=== PATIENT | male | born 1990 | race Hispanic/Latino ===

== ENCOUNTER 2022-01-03 10:33 | Emergency (ER) | payer SELFPAY ==
--- OUTSIDE RECORDS SUMMARY | 2022-01-03 10:37 | XMS REPORT | Continuity of Care Document ---
:1990 Author Organization [facility] t Address [address] [place] [address] Care Team Providers Name Role Phone PCP, PATIENT DOES NOT HAVE A Primary Care Physician Unavaila CARLOS Parker Attending Clinician Unavailable Carlos Roberts DO Attending Clinician Problems Condition Condition Condition Status Onset Resolution Last Treating Co mments Source Name Details Category Date Date Treatment Clinician Date Obesity Obesity Disease Active Univers (BMI (BMI 5-30 ity of 30-39.9) 30-39.9) 00:00: [place] 00 Medical Branch Allergies, Adverse Reactions, Alerts Allergy Allergy Status Severity Reaction(s) Onset Inactive Treating Comm ents Source Name Type Date Date Clinician NO KNOWN Drug Active Univers ALLERGIE Class ity of S [place] Medical Branch Social History Social Habit Start Date Stop Date Quantity Comments Source Exposure to 2021-12-19 2021-12-29 Not sure [facility] SARS-CoV-2 (event) 00:00:00 08:52:00 Medica l Branch Sex Assigned At [birth year] [facility] y of [place] 00:00:00 00:00:00 Medical Branch Smoking Status Start Date Stop Date Source Tobacco smoking consumption Univ [facility] Medical unknown Branch Medications Ordered Filled Start Stop Current Ordering Indication Dosage Frequency Signature Comments Components Source Medication Medication Date Date Medication? Clinician (SIG) Name Name naproxen Yes [id number] 550mg Take 1 U nivers sodium 550 8-24 tablet by ity of mg tablet 00:00: mouth in [place] the Medical morning Branch and 1 tablet in the evening. Take with meals. methylPREDN Yes [id number] Take by [facility] ISolone 4 12-29 mouth ity of mg tablets 00:00: [place]INSTRU [place] 00 CTIONS. Medical follow Branch package directions methocarbam 2021- Yes [id number] 500mg Take 1 Univers oL 500 mg 12-29 08-30 tablet by ity of tablet 00:00: 04:59 mouth in [place] 00 :00 the [facility] Branch and 1 tablet at noon and 1 tablet in the evening. Do all this for 5 days. Vital Signs Vital Name Observation Time Observation Value Comments Source Systolic blood 2021-12-29 13:52:00 149 mm[Hg] [facility] Diastolic blood 2021-12-29 13:52:00 82 mm[Hg] [facility] 2021-12-29 13:52:00 85 /min [facility] Body temperature 2021-12-29 13:52:00 37.17 Nava [facility] Respiratory rate 2021-12-29 13:52:00 14 /min [facility] Body height 2021-12-29 13:52:00 165.1 cm [facility] Body weight 2021-12-29 13:52:00 83.915 kg [facility] BMI 2021-12-29 13:52:00 30.79 kg/m2 [facility] Oxygen saturation in 2021-12-29 13:52:00 98 /min [facility] Arterial blood by [facility] Pulse oximetry [place] Procedures Procedure Date / Time Performed Performing Clinician [facility] e CONSENT/REFUSAL FOR 2021-12-29 13:44:41 Doctor Unassigned, No Un [facility] DIAGNOSIS AND Name Medical Branch TREATMENT Encounters Start End Encounter Admission Attending Care Care Encounter Source Date/Time Date/Time Type Type Clinicians Facility Department ID 2021-12-29 2021-12-29 Emergency X WILLY ROBERTS ERT [id number] Univers 08:53:00 10:32:00 CARLOS tian [facility] 2021-12-29 2021-12-29 Emergency WILLY Roberts [id number] [facility] 08:53:00 10:32:00 Carlos MARGARETTE [id number] i ty [place] [id number] [facility] [id number] [place] 084 Branch Results This patient has no known results.
--- NOTE | 2022-01-03 11:22 | RAD REPORT ---
EXAM DESCRIPTION: US - Extremity Venous Uni Ltd - 01/03/2022 11:13 am CLINICAL HISTORY: Pain COMPARISON: None. TECHNIQUE: Real-time sonographic evaluation of the left lower extremity deep venous system was perfo rmed. FINDINGS: Normal compressibility, flow augmentation, phasic flow and spontaneous flow is identified in the left lower extremity deep venous system. No intraluminal filling defects seen. IMPRESSION: No DVT in the left lower extremity.
--- NOTE | 2022-01-03 11:37 | EDPHYS ---
Physician Documentation [facility] Name: Maco Boykin Age: 31 yrs Sex: Male : 1990 Arrival Date: 01/03/2022 Time: 10:35 Bed 12 Private MD: ED Physician Walker Franklin HPI: 01/03 10:55 This 31 yrs old Male presents to ER via Wheelchair with complaints of Leg Pain.cp 10:55 The patient presents with pain, that is acute. cp 10:55 The complaints affect the left leg. Context: resulted from an unknown cause, the cp patient can fully bear weight, the patient is able to ambulate, without difficulty, Problem is a result from a previous injury: No. Onset: The symptoms/episode began/occurred 1 month(s) ago. Associated signs and symptoms: The patient has no apparent associated signs or symptoms. 10:55 The patient has been recently seen by a physician: [place] ED with similar presenting cp complaints. Historical: - Allergies: 10:44 No Known Allergies; aa5 - PMHx: 10:44 None; aa5 - PSHx: 10:44 None; aa5 - Immunization history:: Adult Immunizations unknown. - Social history:: Smoking status: Patient denies any tobacco usage or history of. ROS: 11:00 MS/extremity: Positive for pain, of the left leg, Negative for injury or acute cp deformity, decreased range of motion, paresthesias. 11:00 Constitutional: Negative for body aches, chills, fever, poor PO intake. cp 11:00 Neck: Negative for pain with movement, pain at rest. 11:00 Cardiovascular: Negative for chest pain, palpitations. 11:00 Respiratory: Negative for cough, shortness of breath, wheezing. 11:00 Abdomen/GI: Negative for abdominal pain, nausea, vomiting, and diarrhea. 11:00 Back: Negative for pain at rest, pain with movement, radiated pain. 11:00 Neuro: Negative for altered mental status, headache, numbness, weakness. 11:00 All other systems are negative. Exam: 11:05 Constitutional: The patient appears in no acute distress, alert, awake, comfortable, cp well developed, well nourished. 11:05 Head/Face: Normocephalic, atraumatic. cp 11:05 Neck: ROM/movement: is normal, is supple, without pain, no range of motions limitations. 11:05 Chest/axilla: Inspection: normal. 11:05 Cardiovascular: Rate: normal, Pulses: Pulses are 2+ in left dorsalis pedis artery. Edema: is not appreciated. 11:05 Respiratory: the patient does not display signs of respiratory distress, Respirations: normal, no use of accessory muscles, no retractions, labored breathing, is not present. 11:05 Abdomen/GI: Exam negative for discomfort, distension, guarding, Inspection: abdomen appears normal. 11:05 Back: pain, is absent, ROM is normal. 11:05 Musculoskeletal/extremity: Extremities: grossly normal except: noted in the left leg: pain from anterior mid upper leg to lower leg, no pain of left hip and left knee and left ankle with full AROM. Overlying skin warm and dry. Vital Signs: 10:42 BP 134 / 87; Pulse 88; Resp 16 S; Temp 98.3(TE); Pulse Ox 97% on R/A; Weight 83.91 kg aa5 (R); Height 5 ft. 5 in. (165.10 cm) (R); 10:42 Body Mass Index 30.79 (83.91 kg, 165.10 cm) aa5 MDM: 10:48 Patient medically screened. cp 11:00 Differential diagnosis: DVT, cellulitis. cp 11:36 Data reviewed: vital signs, nurses notes, radiologic studies, ultrasound, and as a cp result, I will discharge patient. 01/03 10:47 Order name: US Extremity Venous Unilateral Ltd; Complete Time: 11:28 cp 01/03 11:28 Interpretation: Report reviewed. cp Administered Medications: No medications were administered Disposition: 14:07 Co-signature as Attending Physician, Walker Franklin MD. rn Disposition Summary: 01/03/22 11:37 Discharge Ordered Location: Home cp Problem: new cp Symptoms: have improved cp Condition: Stable cp Diagnosis - Pain in left leg cp Followup: cp - With: Private Physician - When: 2 - 3 days - Reason: Worsening of condition Discharge Instructions: - Discharge Summary Sheet cp - Musculoskeletal Pain cp Forms: - Medication Reconciliation Form cp - Work release form iw - Thank You Letter cp - Antibiotic Education cp - Prescription Opioid Use cp Prescriptions: - Diclofenac Sodium 75 mg Oral Tablet Sustained Release - take 1 tablet by ORAL route 2 times per day; 30 tablet; Refills: 0, Product cp Selection Permitted Signatures: Dispatcher [employer] Walker Odonnell MD MD rn Calderon, Audri, RN RN aa5 Brian Duval PA PA cp Corrections: (The following items were deleted from the chart) 11:30 11:30 This 31 yrs old Male presents to ER via Wheelchair with complaints of cp Leg Pain. cp
--- NOTE | 2022-01-03 11:37 | ER ---
Nurse's Notes [facility] Name: Maco Boykin Age: 31 yrs Sex: Male : 1990 Arrival Date: 01/03/2022 Time: 10:35 Bed 12 Private MD: Diagnosis: Pain in left leg Presentation: 01/03 10:42 Chief complaint: Patient states: left leg pain that began 1 month ago, pt reports being aa5 seen at [facility] and was told he needed new work boots and medications prescribed are not helping. Coronavirus screen: At this time, the client does not indicate any symptoms associated with coronavirus-19. Ebola Screen: No symptoms or risks identified at this time. Initial Sepsis Screen: Does the patient meet any 2 criteria? No. Patient's initial sepsis screen is negative. Does the patient have a suspected source of infection? No. Patient's initial sepsis screen is negative. Risk Assessment: Do you want to hurt yourself or someone else? Patient reports no desire to harm self or others. Onset of symptoms was November 2021. 10:42 Acuity: ZAIRA 4 aa5 10:42 Method Of Arrival: Wheelchair aa5 Historical: - Allergies: 10:44 No Known Allergies; aa5 - PMHx: 10:44 None; aa5 - PSHx: 10:44 None; aa5 - Immunization history:: Adult Immunizations unknown. - Social history:: Smoking status: Patient denies any tobacco usage or history of. Screenin:45 Abuse screen: Denies threats or abuse. Nutritional screening: No deficits noted. aa5 Tuberculosis screening: No symptoms or risk factors identified. Fall Risk None identified. Assessment: 10:41 General: Appears comfortable, Behavior is calm, cooperative. Pain: Complains of pain in aa5 left leg Pain currently is 5 out of 10 on a pain scale. Pain began 1 month ago Is intermittent, Aggravated by weight bearing. Neuro: Level of Consciousness is awake, alert, obeys commands, Oriented to person, place, time, situation. Cardiovascular: Patient's skin is warm and dry. Respiratory: Airway is patent Respiratory effort is even, unlabored, Respiratory pattern is regular, symmetrical. GI: No signs and/or symptoms were reported involving the gastrointestinal system. : No signs and/or symptoms were reported regarding the genitourinary system. EENT: No signs and/or symptoms were reported regarding the EENT system. Derm: Skin is pink, warm \T\ dry. Musculoskeletal: Range of motion: intact in all extremities. 11:53 Reassessment: Patient is alert, oriented x 3, equal unlabored respirations, skin aa5 warm/dry/pink. Vital Signs: 10:42 BP 134 / 87; Pulse 88; Resp 16 S; Temp 98.3(TE); Pulse Ox 97% on R/A; Weight 83.91 kg aa5 (R); Height 5 ft. 5 in. (165.10 cm) (R); 10:42 Body Mass Index 30.79 (83.91 kg, 165.10 cm) aa5 ED Course: 10:35 Patient arrived in ED. am2 10:36 Brian Duval PA is PHCP. cp 10:36 Walker Franklin MD is Attending Physician. cp 10:41 Arm band placed on Patient placed in an exam room, on a stretcher. aa5 10:41 Patient has correct armband on for positive identification. Bed in low position. Call aa5 light in reach. Side rails up X 1. Adult w/ patient. 10:44 Triage completed. aa5 10:44 Vidya Bustos, RN is Primary Nurse. aa5 11:15 US Extremity Venous Unilateral Ltd In Process Unspecified. EDMS 11:53 No provider procedures requiring assistance completed. Patient did not have IV access aa5 during this emergency room visit. Administered Medications: No medications were administered Medication: 11:53 VIS not applicable for this client. aa5 Outcome: 11:37 Discharge ordered by MD. cp 11:53 Discharged to home ambulatory, with family. aa5 11:53 Condition: stable 11:53 Discharge instructions given to patient, Instructed on discharge instructions, follow up and referral plans. medication usage, Demonstrated understanding of instructions, follow-up care, medications, Prescriptions given X 1. 11:53 Patient left the ED. aa5 Signatures: Dispatcher [employer] EDMS Vidya Bustos, RN RN aa5 Brian Duval PA PA cp Moreno, Amanda am2
[2022-01-03 11:58] VITALS: BP 134/87; TEMP 98.3; O2SAT 97
== END 2022-01-03 11:53 | disposition home or self-care (01) ==
LOC: ER 10:33
DX: M79.605 Pain in left leg (principal)
CPT/HCPCS: 93971; 99283

== ENCOUNTER 2022-03-12 08:51 | Emergency (ER) | payer SELFPAY ==
--- OUTSIDE RECORDS SUMMARY | 2022-03-12 08:55 | XMS REPORT | Continuity of Care Document ---
:1990 Author Organization [facility] [place] t Address [address] [place] [address] Care Team Providers Name Role Phone PCP, PATIENT DOES NOT HAVE A Primary Care Physician Unavaila CARLOS Parker Attending Clinician Unavailable Carlos Roberts DO Attending Clinician Problems Condition Condition Condition Status Onset Resolution Last Treating Co mments Source Name Details Category Date Date Treatment Clinician Date Obesity Obesity Disease Active Univers (BMI (BMI 5-30 ity of 30-39.9) 30-39.9) 00:00: [place] 00 Medical Branch Allergies, Adverse Reactions, Alerts Allergy Allergy Status Severity Reaction(s) Onset Inactive Treating Comm ents Source Name Type Date Date Clinician NO KNOWN Drug Active Univers ALLERGIE Class ity of S [place] Medical Branch Social History Social Habit Start Date Stop Date Quantity Comments Source Exposure to 2021-12-19 2021-12-29 Not sure [facility] SARS-CoV-2 (event) 00:00:00 08:52:00 Medica l Branch Sex Assigned At [birth year] [facility] [place] 00:00:00 00:00:00 Medical Branch Smoking Status Start Date Stop Date Source Tobacco smoking consumption Univ [facility] Medical unknown Branch Medications Ordered Filled Start Stop Current Ordering Indication Dosage Frequency Signature Comments Components Source Medication Medication Date Date Medication? Clinician (SIG) Name Name naproxen Yes [id number] 550mg Take 1 U nivers sodium 550 8-24 tablet by ity [facility] mg tablet [facility] and 1 tablet in the evening. Take with meals. methylPREDN Yes [id number] Take by [facility] ISolone 4 12-29 mouth ity of mg tablets 00:00: SEE-INSTRU [place] 00 CTIONS. Medical follow Branch package directions methocarbam 2021- Yes [id number] 500mg Take 1 Univers oL 500 mg 12-29 08-30 tablet by ity of tablet 00:00: 04:59 mouth in [place] 00 :00 the Medical morning Branch and 1 tablet at noon and 1 tablet in the evening. Do all this for 5 days. Vital Signs Vital Name Observation Time Observation Value Comments Source Systolic blood 2021-12-29 13:52:00 149 mm[facility]Hg[facility] 2021-12-29 13:52:00 82 mm[Hg] [facility] Heart rate 2021-12-29 13:52:00 85 /min [facility] Body temperature 2021-12-29 13:52:00 37.17 Nava [facility] Respiratory rate 2021-12-29 13:52:00 14 /min [facility] Body height 2021-12-29 13:52:00 165.1 cm [facility] Body weight 2021-12-29 13:52:00 83.915 kg [facility] BMI 2021-12-29 13:52:00 30.79 kg/m2 [facility] Oxygen saturation in 2021-12-29 13:52:00 98 /min [facility] Arterial blood by [facility] Pulse oximetry Branch Procedures Procedure Date / Time Performed Performing Clinician [facility] CONSENT/REFUSAL FOR 2021-12-29 13:44:41 Doctor Unassigned, No Un [facility] DIAGNOSIS AND Name Medical Branch TREATMENT Encounters Start End Encounter Admission Attending Care Care Encounter Source Date/Time Date/Time Type Type Clinicians Facility Department ID 2021-12-29 2021-12-29 Emergency X WILLY ROBERTS ERT [id number] [facility] 08:53:00 10:32:00 CARLOS tian [facility] 2021-12-29 2021-12-29 Emergency WILLY Roberts [id number] [facility] 08:53:00 10:32:00 Carlos PFEIFFER [id number] i ty of [place] [id number] [facility] [id number] [facility] 084 Branch Results This patient has no known results.
[2022-03-12 10:03] LABS: Urine Blood 3+ (Negative); Urine Glucose Negative (Negative); Urine Protein Negative (Negative); Urine pH 5.5 (5.0-7.0)
[2022-03-12] MEDS ORDERED: MORPHINE 2 MG/ML SYR ONE (10:04)
[2022-03-12] MEDS ORDERED: PROMETHAZINE INJ 25 MG/ML AMP ONE (10:04)
[2022-03-12] MEDS ORDERED: NA CHLORIDE 0.9% 1,000 ML ONE (10:05)
[2022-03-12] MEDS ORDERED: KETOROLAC 30 MG/ML INJ ONE (10:05)
--- NOTE | 2022-03-12 10:24 | RAD REPORT ---
[facility]AM DESCRIPTION[facility] - 03[facility]12/2022 10:09 am CLINICAL HISTORY: Flank pain, kidney stone suspected COMPARISON: No comparisons TECHNIQUE: CT of the abdomen and pelvis was performed. All CT scans are performed using dose optimization technique as appropriate and may include automated exposure control or mA/KV adjustment according to patient size. FINDINGS: Lower chest: No acute abnormality. Liver: No acute abnormality or suspicious lesions. Biliary: No biliary ductal dilatation. Stomach: No significant focal abnormality. Duodenum: No significant focal abnormality. Pancreas: No significant abnormality. Spleen: No significant abnormality. Adrenal: No suspicious lesions. Kidney/ureter: Mild right-sided hydroureteronephrosis secondary to a 2 millimeters stone just proxima l to the right UVJ. Retroperitoneum: No retroperitoneal adenopathy. Vascular: No aneurysm. Bowel: No significant focal abnormality. Appendectomy. Peritoneum: No ascites or free air. Bladder: Grossly unremarkable. Reproductive: No adnexal masses. Bones: No acute fracture. Other: n/a IMPRESSION: Mild right-sided hydroureteronephrosis secondary to a 2 mm stone in the right distal ure ter.
[2022-03-12 10:48] LABS: Hematocrit 46.1 % (39.6-49.0); Lymphocytes % 7.2 % (15.3-44.8); MCV 89.1 fL (80-100); MPV 8.9 fL (7.6-11.3); RBC Red Blood Cell Count 5.17 M/uL (4.33-5.43)
[2022-03-12] MEDS ORDERED: TAMSULOSIN 0.4 MG SR CAP ONE (11:00)
[2022-03-12 11:03] LABS: Albumin 4.5 g/dL (3.4-5.0); Bilirubin Total 0.6 mg/dL (0.2-1.0); Potassium 4.1 mmol/L (3.5-5.1)
--- NOTE | 2022-03-12 11:04 | EDPHYS ---
Physician Documentation [facility] Name: Maco Boykin Age: 31 yrs Sex: Male : 1990 Arrival Date: 03/12/2022 Time: 08:52 Bed DIS3 Private MD: ED Physician Samy Gonzalez HPI: 03/12 09:38 This 31 yrs old Male presents to ER via Ambulatory with complaints of snw Vomiting, Abdominal Pain, Urinary Problem. 09:38 The patient presents to the emergency department with nausea, vomiting. Onset: The snw symptoms/episode began/occurred suddenly, 0430. Possible causes: unknown. The symptoms are aggravated by nothing. The symptoms are alleviated by nothing. Associated signs and symptoms: Pertinent positives: abdominal pain, nausea, vomiting. Severity of symptoms: At their worst the symptoms were moderate. The patient has not experienced similar symptoms in the past. The patient has not recently seen a physician. Historical: - Allergies: 09:10 No Known Allergies; ss - Home Meds: 09:10 None [Active]; ss - PMHx: 09:10 None; ss - PSHx: 09:10 None; ss - Immunization history:: Client reports having NOT received the Covid vaccine. - Social history:: Smoking status: Patient denies any tobacco usage or history of. Patient/guardian denies using alcohol. ROS: 09:37 Eyes: Negative for injury, pain, redness, and discharge, ENT: Negative for injury, snw pain, and discharge, Neck: Negative for injury, pain, and swelling, Cardiovascular: Negative for chest pain, palpitations, and edema, Respiratory: Negative for shortness of breath, cough, wheezing, and pleuritic chest pain. 09:37 Back: Negative for injury and pain, : Negative for injury, bleeding, discharge, and swelling, MS/Extremity: Negative for injury and deformity, Skin: Negative for injury, rash, and discoloration, Neuro: Negative for headache, weakness, numbness, tingling, and seizure. 09:37 Constitutional: Positive for body aches. 09:37 Abdomen/GI: Positive for abdominal pain, nausea, vomiting. Exam: 09:38 Constitutional: This is a well developed, well nourished patient who is awake, alert, snw and in no acute distress. Head/Face: Normocephalic, atraumatic. Eyes: Pupils equal round and reactive to light, extra-ocular motions intact. Lids and lashes normal. Conjunctiva and sclera are non-icteric and not injected. Cornea within normal limits. Periorbital areas with no swelling, redness, or edema. ENT: Nares patent. No nasal discharge, no septal abnormalities noted. Tympanic membranes are normal and external auditory canals are clear. Oropharynx with no redness, swelling, or masses, exudates, or evidence of obstruction, uvula midline. Mucous membranes moist. Neck: Trachea midline, no thyromegaly or masses palpated, and no cervical lymphadenopathy. Supple, full range of motion without nuchal rigidity, or vertebral point tenderness. No Meningismus. Chest/axilla: Normal chest wall appearance and motion. Nontender with no deformity. No lesions are appreciated. Cardiovascular: Regular rate and rhythm with a normal S1 and S2. No gallops, murmurs, or rubs. Normal PMI, no JVD. No pulse deficits. Respiratory: Lungs have equal breath sounds bilaterally, clear to auscultation and percussion. No rales, rhonchi or wheezes noted. No increased work of breathing, no retractions or nasal flaring. 09:38 Back: No spinal tenderness. No costovertebral tenderness. Full range of motion. Skin: Warm, dry with normal turgor. Normal color with no rashes, no lesions, and no evidence of cellulitis. MS/ Extremity: Pulses equal, no cyanosis. Neurovascular intact. Full, normal range of motion. Neuro: Awake and alert, GCS 15, oriented to person, place, time, and situation. Cranial nerves II-XII grossly intact. Motor strength 5/5 in all extremities. Sensory grossly intact. Cerebellar exam normal. Normal gait. Psych: Awake, alert, with orientation to person, place and time. Behavior, mood, and affect are within normal limits. 09:38 Abdomen/GI: Inspection: abdomen appears normal, Bowel sounds: normal, Palpation: mild abdominal tenderness, in the right upper quadrant and right lower quadrant. Vital Signs: 09:08 BP 135 / 81; Pulse 74; Resp 14; Temp 98.4(TE); Pulse Ox 100% on R/A; Weight 86.18 kg; ss Height 5 ft. 5 in. (165.10 cm); Pain 10/10; 09:08 Body Mass Index 31.62 (86.18 kg, 165.10 cm) ss MDM: 09:11 Patient medically screened. snw 10:48 Data reviewed: vital signs, nurses notes. Data interpreted: Pulse oximetry: on room air snw is 100 %. Interpretation: normal. Counseling: I had a detailed discussion with the patient and/or guardian regarding: the historical points, exam findings, and any diagnostic results supporting the discharge/admit diagnosis, the presence of at least one elevated blood pressure reading (>120/80) during this emergency department visit, lab results, radiology results, the need for outpatient follow up, to return to the emergency department if symptoms worsen or persist or if there are any questions or concerns that arise at home. Response to treatment: the patient's symptoms have markedly improved after treatment. Special discussion: I have referred the patient to see his PCP for further evaluation of high blood pressure. Based on the history and exam findings, there is no indication for further emergent testing or inpatient evaluation. I discussed with the patient/guardian the need to see the primary care provider for further evaluation of the symptoms. 03/12 09:18 Order name: Urine Dipstick-Ancillary; Complete Time: 10:12 EDMS 03/12 09:21 Order name: CBC with Diff; Complete Time: 10:56 snw 03/12 09:21 Order name: CMP; Complete Time: 11:03 snw 03/12 09:21 Order name: Stone Protocol CT; Complete Time: 10:32 snw 03/12 09:21 Order name: IV Saline Lock; Complete Time: 11:00 snw 03/12 09:21 Order name: Labs collected and sent; Complete Time: 11:00 snw 03/12 09:21 Order name: Urine Dipstick-Ancillary (obtain specimen); Complete Time: 09:34 snw Administered Medications: 10:38 Drug: morphine 2 mg Route: IVP; Infused Over: 4 mins; Site: right antecubital; ss 11:07 Follow up: Response: No adverse reaction; Pain is decreased ss 10:40 Drug: Ketorolac 30 mg Route: IVP; Site: right antecubital; ss 11:07 Follow up: Response: No adverse reaction; Marked relief of symptoms ss 10:42 Drug: NS 0.9% 1000 ml Route: IV; Rate: 1 bolus; Site: right antecubital; ss 11:17 Follow up: IV Status: Completed infusion; IV Intake: 1000ml ss 10:42 Drug: Phenergan (promethazine) 25 mg Route: IM; Site: left deltoid; ss 11:07 Follow up: Response: No adverse reaction; Marked relief of symptoms ss 11:00 Drug: Flomax (tamsulosin) 0.4 mg Route: PO; ss 11:07 Follow up: Response: Medication administered at discharge. ss 11:17 Drug: Cipro (ciprofloxacin) 500 mg Route: PO; ss 11:17 Follow up: Response: Medication administered at discharge. ss Disposition Summary: 03/12/22 11:03 Discharge Ordered Location: Home snw Condition: Stable snw Diagnosis - Hydronephrosis with renal and ureteral calculous obstruction - 2mm snw Followup: snw - With: Emergency Department - When: As needed - Reason: Worsening of condition Followup: snw - With: Private Physician - When: 2 - 3 days - Reason: Recheck today's complaints, Continuance of care, Re-evaluation by your physician Discharge Instructions: - Discharge Summary Sheet snw - Kidney Stones snw - Renal Colic snw - Hydronephrosis snw - Rehydration, Adult snw Forms: - Work release form snw - Medication Reconciliation Form snw - Thank You Letter snw - Antibiotic Education snw - Prescription Opioid Use snw Prescriptions: - tamsulosin 0.4 mg Oral capsule - take 1 capsule by ORAL route once daily 1/2 hour following the same meal each snw day; 20 capsule; Refills: 0, Product Selection Permitted - Cipro 500 mg Oral Tablet - take 1 tablet by ORAL route every 12 hours for 7 days; 14 tablet; Refills: 0, snw Product Selection Permitted - Diclofenac Sodium 75 mg Oral Tablet Sustained Release - take 1 tablet by ORAL route 2 times per day; 30 tablet; Refills: 0, Product snw Selection Permitted - promethazine 25 mg Oral Tablet - take 1 tablet by ORAL route every 6 hours As needed; 20 tablet; Refills: 0, snw Product Selection Permitted Signatures: Dispatcher [employer] Madeleine Riddle FNP-C SERVICE DESK TECHNICIAN-Margi Rm RN RN ss Corrections: (The following items were deleted from the chart) 10:22 09:39 Urine Dipstick-Ancillary ordered. EDMS EDMS
--- NOTE | 2022-03-12 11:04 | ER ---
Nurse's Notes [facility] Name: Maco Boykin Age: 31 yrs Sex: Male : 1990 Arrival Date: 03/12/2022 Time: 08:52 Bed DIS3 Private MD: Diagnosis: Hydronephrosis with renal and ureteral calculous obstruction-2mm Presentation: 03/12 09:08 Chief complaint: Patient states: lower abd pain, nausea and urinary frequency that ss began this morning at 0430. Coronavirus screen: Vaccine status: Patient reports being unvaccinated. Ebola Screen: Patient denies exposure to infectious person. Patient denies travel to an Ebola-affected area in the 21 days before illness onset. Initial Sepsis Screen: Does the patient meet any 2 criteria? No. Patient's initial sepsis screen is negative. Does the patient have a suspected source of infection? No. Patient's initial sepsis screen is negative. Risk Assessment: Do you want to hurt yourself or someone else? Patient reports no desire to harm self or others. Onset of symptoms was March 12, 2022. 09:08 Method Of Arrival: Ambulatory ss 09:08 Acuity: ZAIRA 3 ss Historical: - Allergies: 09:10 No Known Allergies; ss - Home Meds: 09:10 None [Active]; ss - PMHx: 09:10 None; ss - PSHx: 09:10 None; ss - Immunization history:: Client reports having NOT received the Covid vaccine. - Social history:: Smoking status: Patient denies any tobacco usage or history of. Patient/guardian denies using alcohol. Screenin:18 Abuse screen: Denies threats or abuse. Denies injuries from another. Nutritional ss screening: No deficits noted. Tuberculosis screening: Never had TB. Fall Risk None identified. Assessment: 11:17 Reassessment: Patient appears in no apparent distress at this time. Patient and/or ss family updated on plan of care and expected duration. Pain level reassessed. Patient states feeling better. Respiratory: Respiratory effort is even, unlabored. Vital Signs: 09:08 BP 135 / 81; Pulse 74; Resp 14; Temp 98.4(TE); Pulse Ox 100% on R/A; Weight 86.18 kg; ss Height 5 ft. 5 in. (165.10 cm); Pain 10/10; 09:08 Body Mass Index 31.62 (86.18 kg, 165.10 cm) ED Course: 08:52 Patient arrived in ED. rg4 09:04 Madeleine España [facility]-C [facility] snw 09:04 Samy Gonzalez MD is Attending Physician. snw 09:10 Triage completed. ss 09:10 Arm band placed on right wrist. ss 09:33 Urine Dipstick-Ancillary Sent. eb 10:[address] In Process Unspecified. EDMS 10:42 Margi Bradley, RN is Primary Nurse. ss Administered Medications: 10:38 Drug: morphine 2 mg Route: IVP; Infused Over: 4 mins; Site: right antecubital; ss 11:07 Follow up: Response: No adverse reaction; Pain is decreased ss 10:40 Drug: Ketorolac 30 mg Route: IVP; Site: right antecubital; ss 11:07 Follow up: Response: No adverse reaction; Marked relief of symptoms ss 10:42 Drug: NS 0.9% 1000 ml Route: IV; Rate: 1 bolus; Site: right antecubital; ss 11:17 Follow up: IV Status: Completed infusion; IV Intake: 1000ml ss 10:42 Drug: Phenergan (promethazine) 25 mg Route: IM; Site: left deltoid; ss 11:07 Follow up: Response: No adverse reaction; Marked relief of symptoms ss 11:00 Drug: Flomax (tamsulosin) 0.4 mg Route: PO; ss 11:07 Follow up: Response: Medication administered at discharge. ss 11:17 Drug: Cipro (ciprofloxacin) 500 mg Route: PO; ss 11:17 Follow up: Response: Medication administered at discharge. ss Intake: 11:17 IV: 1000ml; Total: 1000ml. Outcome: 11:03 Discharge ordered by . snw 11:18 Patient left the ED. Signatures: Dispatcher [employer] EDMS Madeleine España FNP-C FLAT LOCK MACHINE OPERATOR-Csnw Margi Bradley RN RN Saige Santizo rg4 Cammie Sommer
[2022-03-12] MEDS ORDERED: CIPROFLOXACIN HCL 500 MG TAB ONE (11:11)
[2022-03-12 11:50] VITALS: BP 135/81; TEMP 98.4; O2SAT 100
== END 2022-03-12 11:18 | disposition home or self-care (01) ==
LOC: ER 08:51
DX: N13.2 Hydronephrosis with renal and ureteral calculous obstruction (principal)
CPT/HCPCS: 36415; 74176; 76377; 80053; 81003; 85025; 96361; 96372; 96374; 96375; 99283; J2270; J2550; J7030